=== PATIENT | male | born 1930 | race Caucasian/White ===

== ENCOUNTER 2018-06-22 23:50 | Emergency (ER) | payer MEDICARE, OTHER ==
[~2018-06-22] VITALS: Ht 182.9 cm; Wt 89.8 kg
[2018-06-23] MEDS ORDERED: FLOMAX0.4 MG (00:36)
[2018-06-23] MEDS ORDERED: MULTI VITAMIN1 EACH (00:36)
[2018-06-23] MEDS ORDERED: PROSCAR 5MG TABL5 M1 (00:37)
[2018-06-23] MEDS ORDERED: ASPIR 8181 MG (00:37)
[2018-06-23] MEDS ORDERED: SUPER B-50 COM1 EACH (00:38)
[2018-06-23] MEDS ORDERED: LOVASTATIN 20 M20 MG (00:39)
[2018-06-23] MEDS ORDERED: ARICEPT10 MG (00:39)
[2018-06-23] MEDS ORDERED: ADVAIR (00:40)
[2018-06-23 01:58] VITALS: BP 109/68
== END 2018-06-23 02:02 | disposition home or self-care (01) ==
LOC: M.ERS 23:50
DX: M54.9 Dorsalgia, unspecified (principal); M25.559 Pain in unspecified hip; F03.90 Unspecified dementia, unspecified severity, without behavioral disturbance, psychotic disturbance, mood disturbance, and anxiety; W06.XXXA Fall from bed, initial encounter; Y93.89 Activity, other specified; Y92.89 Other specified places as the place of occurrence of the external cause; Y99.8 Other external cause status